=== PATIENT | male | born 1970 | race Asian ===

== ENCOUNTER 2017-10-20 01:47 | Emergency (ER) | payer OTHER ==
[~2017-10-20] VITALS: Ht 172.7 cm; Wt 108.4 kg
[2017-10-20 01:55] VITALS: Ht 172.7 cm; Wt 108.4 kg
[2017-10-20 03:28] LABS: ALKALINE PHOSPHATASE 121 U/L (46-116); ALT/SGPT 79 U/L (16-63); AST/SGOT 31 U/L (15-37); BILIRUBIN TOTAL 1.04 mg/dL (0.20-1.00); CARBON DIOXIDE 25.1 mmol/L (21-32); CHLORIDE SERUM 97 mmol/L (98-107); CREATININE SERUM 1.2 mg/dL (0.7-1.3); GFR1 > 60 mL/min; POTASSIUM SERUM 3.7 mmol/L (3.5-5.1); SODIUM SERUM 135 mmol/L (136-145); TOTAL PROTEIN, SERUM 7.5 g/dL (6.4-8.2)
[2017-10-20 03:29] LABS: BASOPHIL % 0.5 % (0-2); PLATELET COUNT 230 x10^3mcL (130-400); RED CELL DISTRIBUTION WIDTH 13.4 % (11.5-14.5)
[2017-10-20 03:31] LABS: GLUCOSE SERUM 521.61 mg/dL (74-106)
[2017-10-20 03:35] LABS: UA SPECIFIC GRAVITY <=1.005 (1.005-1.035); microscopic required? YES; urine erythrocyte 1+ (NEGATIVE)
[2017-10-20 04:00] LABS: OSMOLALITY SERUM 309 mOsm/kg (278-298)
[2017-10-20 06:27] VITALS: BP 139/99
[2017-10-20] MEDS ORDERED: COZAAR100 MG PO (14:37)
[2017-10-20] MEDS ORDERED: METFORMIN HYDR500 M1 PO (14:38)
[2017-10-21] MEDS ORDERED: LIPI10 PO (10:55)
[2017-10-21] MEDS ORDERED: METFORMIN HCL1000 MG PO (10:56)
[2017-10-21] MEDS ORDERED: HUMULIN R100 U/1 M1 SC ×2 (11:24→11:26)
== END 2017-10-20 06:27 | disposition home or self-care (01) ==
LOC: ED 01:47
PROVIDERS: Emergency Medicine
DX: E11.9 Type 2 diabetes mellitus without complications (principal); I10 Essential (primary) hypertension
CPT/HCPCS: 82962; 83880; J1815; J7030; Q0092